=== PATIENT | male | born 1965 | race Caucasian/White ===

== ENCOUNTER 2020-02-02 21:18 | Emergency (ER) | payer OTHER ==
[~2020-02-02] VITALS: Ht 180.3 cm; Wt 109.8 kg
--- NOTE | 2020-02-02 21:18 | NUR ---
BRANDON FROM [facility] C/O BLEEDING FROM SURGICAL SITE PER RA, VASCULAR SURGERY "A COUPLE WEEKS AGO"; PT AWAKE, ALERT, -SOB, NAD NOTED, VSS, PENDING ER PROVIDER EVAL
[2020-02-02 22:13] LABS: BASOPHILS % (AUTO) 0.7 % (0.0-2.0); EOSINOPHILS % (AUTO) 2.7 % (0.0-6.0); HEMATOCRIT 28 % (39-51); HEMOGLOBIN 8.8 g/dL (13.5-17.5); LYMPHOCYTES # (AUTO) 1.8 /CMM (0.8-4.8); LYMPHOCYTES % (AUTO) 26.4 % (20.0-44.0); MEAN CORPUSCULAR HGB CONC 32 g/dl (31.0-36.0); MEAN CORPUSCULAR VOLUME 85 fL (80-96); MONOCYTES # (AUTO) 0.7 /CMM (0.1-1.30); MONOCYTES % (AUTO) 10.1 % (2.0-12.0); NEUTROPHILS # (AUTO) 4.1 /CMM (1.8-8.9); NEUTROPHILS % (AUTO) 60.1 % (43.0-81.0); PLATELET COUNT (AUTO) 327 /CMM (150-450); WHITE BLOOD COUNT (AUTO) 6.9 K/uL (4.3-11.0)
[2020-02-02 22:23] LABS: ALBUMIN 3.8 g/dL (3.4-5.0); BILIRUBIN,TOTAL 0.6 mg/dL (0.2-1.0); CALCIUM, SERUM 9.4 mg/dL (8.5-10.1); CREATININE 1.1 mg/dL (0.6-1.3); POTASSIUM 3.7 mmol/L (3.5-5.1); TOTAL PROTEIN, SERUM 8.2 g/dL (6.4-8.2)
[2020-02-02] MEDS ORDERED: MORPHINE SULFATE INJ 4 MG/ML DISP.SYRIN ONE (22:24)
[2020-02-02] MEDS ORDERED: MORPHINE SULFATE INJ 2 MG/ML DISP.SYRIN IV ONE (22:30)
[2020-02-02] MEDS ORDERED: CT SWABBABLE VALVE TRANS SET 1 EA INFUS.SET MC ONE (22:35)
[2020-02-02] MEDS ORDERED: IV NS 0.9% 250 ML IV ONE (22:35)
[2020-02-02] MEDS ORDERED: IOHEXOL-300 100 ML VIAL IV ONE (22:35)
[2020-02-02] MEDS ORDERED: IOHEXOL-350 100 ML VIAL IV ONE (22:52)
--- NOTE | 2020-02-02 23:05 | NUR ---
PT BACK FROM CT.
--- NOTE | 2020-02-03 00:15 | NUR ---
DR TRAV WIGGINS PER DR SALES
[2020-02-03] MEDS ORDERED: CIPROFLOXACIN IV RTU 400 MG in PREMIX 1 EA IV SCH (00:30)
[2020-02-03] MEDS ORDERED: VANCOMYCIN 1.5 GM in IV D5W 250 ML IV ONE (00:30)
[2020-02-03] MEDS ORDERED: CIPROFLOXACIN IV RTU 200 ML IV ONE (00:35)
--- NOTE | 2020-02-03 00:39 | NUR ---
DR MARK WIGGINS. PER DR SALES
--- NOTE | 2020-02-03 01:11 | NUR ---
DR PHOEBE WIGGINS PER DR SALES
[2020-02-03] MEDS ORDERED: QUETIAPINE FUMARATE 25 MG TABLET PO SCH (01:30)
--- NOTE | 2020-02-03 01:30 | NUR ---
[facility] CALLED, NO AVAILABLE BEDS.
--- NOTE | 2020-02-03 01:35 | NUR ---
[facility] CALLED, NO AVAILABLE BEDS.
--- NOTE | 2020-02-03 01:39 | NUR ---
[facility] CALLED FOR HIGHER LEVEL OF CARE. NO AVAILABLE BEDS.
[2020-02-03] MEDS ORDERED: VANCOMYCIN 500 MG VIAL ONE (01:46)
[2020-02-03] MEDS ORDERED: VANCOMYCIN 1 GM VIAL ONE (01:47)
--- NOTE | 2020-02-03 02:00 | NUR ---
PT NOTED WITH BLEEDING ON LT THIGH; DRSNG CHANGED AT THIS TIME
[2020-02-03] MEDS ORDERED: QUETIAPINE FUMARATE 25 MG TABLET ONE (02:04)
--- NOTE | 2020-02-03 06:00 | NUR ---
PT AWATING POSSIBLE XFER FOR HIGHER LEVEL OF CARE. NO INFO AT THE MOMENT. PT REMAINS STABLEM DRSNG INTACT ON LT THIGH, VSS, NAD NOTED.
--- NOTE | 2020-02-03 07:05 | NUR ---
CALLED LAB FOR COVID SWAB
--- NOTE | 2020-02-03 07:30 | NUR ---
RECEIVED REPORT FROM MAGUE CARY FOR [facility]. PT IS ASLEEP ON BED EASILY AROUSABLE, NOT IN RESPIRATORY DISTRESS, V/S STABLE, KEPT RESTED AND COMFORTABLE, WILL CONTINUE TO MONITOR.
--- NOTE | 2020-02-03 08:14 | NUR ---
COVID 19 ANTIGEN - RESULTS - NEGATIVE
--- NOTE | 2020-02-03 08:15 | NUR ---
COVID 19 ANTIGEN - RESULTS - NEGATIVE
--- NOTE | 2020-02-03 08:37 | NUR ---
[facility] [phone] - MAGUE [place]
--- NOTE | 2020-02-03 08:44 | NUR ---
REPORT GIVEN TO MAGUE FREDERICK FOR [facility].
--- NOTE | 2020-02-03 08:55 | NUR ---
CALLED [facility]. WALL ATTENDANT WAS PAGED
[2020-02-03] MEDS ORDERED: AMIN30LI2 PO (09:57)
[2020-02-03] MEDS ORDERED: NA P133E RC (09:57)
[2020-02-03] MEDS ORDERED: GABA-532 PO (09:57)
[2020-02-03] MEDS ORDERED: ACET-2605 PO (09:57)
[2020-02-03] MEDS ORDERED: AMLO5TAB9 PO (09:57)
[2020-02-03] MEDS ORDERED: DIPH25CA51 PO (09:57)
[2020-02-03] MEDS ORDERED: TERA5CAP4 PO (09:57)
[2020-02-03] MEDS ORDERED: ASPI-869 PO (09:57)
[2020-02-03] MEDS ORDERED: PANT40TA2 PO (09:57)
[2020-02-03] MEDS ORDERED: MAGN400O6 PO (09:57)
[2020-02-03] MEDS ORDERED: DOCU-141 PO (09:57)
[2020-02-03] MEDS ORDERED: HYDR-4384 PO (09:57)
[2020-02-03] MEDS ORDERED: LISI40TA4 PO (09:57)
[2020-02-03] MEDS ORDERED: CLOP75TA15 PO (09:57)
[2020-02-03] MEDS ORDERED: SENN-261 PO (09:57)
[2020-02-03] MEDS ORDERED: ZINC220C6 PO (09:57)
[2020-02-03] MEDS ORDERED: DICL100G16 TP (09:57)
[2020-02-03] MEDS ORDERED: ACET-868 PO (09:57)
[2020-02-03] MEDS ORDERED: ATOR40TA PO (09:57)
[2020-02-03] MEDS ORDERED: CARV25TA2 PO (09:57)
[2020-02-03] MEDS ORDERED: ASCO-352 PO (09:57)
[2020-02-03] MEDS ORDERED: MULT-447 PO (09:57)
[2020-02-03] MEDS ORDERED: ARIP5TAB10 PO (09:57)
[2020-02-03] MEDS ORDERED: BISA10SU11 RC (09:57)
--- NOTE | 2020-02-03 10:03 | NUR ---
SPOKED TO [employer]OV[employer] OPERATOR WILL CALL BACK AFTER MD CONFIRMED.
--- NOTE | 2020-02-03 10:13 | NUR ---
ASHLEY HAIDER AUTOMOTIVE TIRE TECHNICIAN [phone]
--- NOTE | 2020-02-03 11:26 | NUR ---
CALLED A[employer]LEY [employer]OMAT[employer] SPOOLER OPERATOR OF [facility]. VASCULAR MD STILL AT THE CASE WILL CALL BACK AFTER.
[2020-02-03] MEDS ORDERED: IV NS 0.9% 1,000 ML BAG IV ONE (11:30)
--- NOTE | 2020-02-03 11:30 | NUR ---
ASSESSED PT ON BED ASLEEP EASILY AROUSABLE, NOT IN RESPIRATORY DISTRESS, V/S STALBE, KEPT RESTED AND COMFORTABLE. WILL CONTINUE TO MONITOR.
[2020-02-03 12:05] LABS: BASOPHILS % (AUTO) 0.3 % (0.0-2.0); EOSINOPHILS % (AUTO) 1.3 % (0.0-6.0); HEMATOCRIT 31 % (39-51); HEMOGLOBIN 9.8 g/dL (13.5-17.5); LYMPHOCYTES # (AUTO) 0.6 /CMM (0.8-4.8); LYMPHOCYTES % (AUTO) 14.1 % (20.0-44.0); MEAN CORPUSCULAR HGB CONC 32 g/dl (31.0-36.0); MEAN CORPUSCULAR VOLUME 86 fL (80-96); MONOCYTES # (AUTO) 0.3 /CMM (0.1-1.30); MONOCYTES % (AUTO) 6.3 % (2.0-12.0); NEUTROPHILS # (AUTO) 3.4 /CMM (1.8-8.9); PLATELET COUNT (AUTO) 340 /CMM (150-450); RED BLOOD CELL COUNT(AUTO) 3.62 MIL/uL (4.5-6.0); WHITE BLOOD COUNT (AUTO) 4.4 K/uL (4.3-11.0)
--- NOTE | 2020-02-03 12:37 | NUR ---
[facility] [phone] SCHMITT WILL CONTACT VASCULAR SURGEN AND CALL US BACK.
--- NOTE | 2020-02-03 13:15 | NUR ---
ASSESSED PT ON BED AWAKE, AAOX2, NOT IN RESPIRATORY DISTRESS, V/S STABLE, KEPT RESTED AND COMFORTABLE. AWAITING [facility] FOR TRANSFER INFO. WILL CONTINUE TO MONITOR.
--- NOTE | 2020-02-03 13:36 | NUR ---
REPORT GIVEN TO MAGUE MORFIN OF [facility]. FOR [facility]ERIE.
--- NOTE | 2020-02-03 13:38 | NUR ---
CALLED TRANSPORT ETA IS [phone]
[2020-02-03] MEDS ORDERED: ZOSYN IVPB 3.375 G in IV D5W 50ml IV ONE (14:00)
[2020-02-03 14:45] VITALS: BP 101/66
--- NOTE | 2020-02-03 14:45 | NUR ---
ASSESSED PT ON BED AWAKE AND ALERT. NOT IN RESPIRATORY DISTRESS, V/S STABLE, KEPT RESTED AND COMFORTABLE. WILL CONTINUE TO MONITOR.
--- NOTE | 2020-02-03 14:57 | NUR ---
REPORT GIVEN TO EMT FOR PT TRANSFER TO [facility].
== END 2020-02-03 15:03 | disposition short-term general hospital (02) ==
LOC: ER 21:18
DX: I97.618 Postprocedural hemorrhage of a circulatory system organ or structure following other circulatory system procedure (principal); T81.42XA Infection following a procedure, deep incisional surgical site, initial encounter; L02.416 Cutaneous abscess of left lower limb; Z86.73 Personal history of transient ischemic attack (TIA), and cerebral infarction without residual deficits; I10 Essential (primary) hypertension; E78.5 Hyperlipidemia, unspecified; F20.9 Schizophrenia, unspecified; Z86.19 Personal history of other infectious and parasitic diseases; E11.40 Type 2 diabetes mellitus with diabetic neuropathy, unspecified; Z20.828 Contact with and (suspected) exposure to other viral communicable diseases
CPT/HCPCS: 36415 ×2; 72193; 73701; 80053; 83605; 85025 ×2; 85240; 85610; 85730; 86850; 87040 ×2; 87081; 87426; 96361; 96365; 96366; 96367; 96375; 99285; A4216; A6253; A6403 ×2; C9803 ×2; J0744; J2270; J2543; J3370 ×2; J7030; J7050; J7060; Q9967 ×2; U0003